=== PATIENT | female | born 1965 | race Hispanic/Latino ===

== ENCOUNTER 2019-10-02 22:12 | Inpatient (IN) | payer SELFPAY ==
[2019-10-02] MEDS ORDERED: MAGNE/ALUM HYDROXD 30 ML UCUP ONE (22:47)
[2019-10-02] MEDS ORDERED: ONDANSETRON 4 MG/2 ML VIAL ONE (22:48)
[2019-10-02] MEDS ORDERED: LIDOCAINE VISCOUS 2% SOLN 15 ML UDC ONE (22:48)
[2019-10-02] MEDS ORDERED: MORPHINE 4 MG/ML SYR ONE (22:48)
[2019-10-02] MEDS ORDERED: FAMOTIDINE 20 MG/2 ML VIAL IV ONE (22:48)
[2019-10-02] MEDS ORDERED: NA CHLORIDE 0.9% 1,000 ML ONE (22:48)
[2019-10-02 23:07] LABS: Absolute Lymphocytes (CBC) 1.7 K/uL (0.7-4.9); Basophils % 0.2 % (0-1.3); Hematocrit 38.8 % (36.0-45.0); Lymphocytes % 11.9 % (15.3-44.8); RBC Red Blood Cell Count 4.23 M/uL (3.86-4.86)
[2019-10-02 23:17] LABS: Albumin 3.9 g/dL (3.4-5.0); Bilirubin Direct 0.1 mg/dL (0-0.2); Bilirubin Total 0.5 mg/dL (0.2-1.0); Potassium 3.4 mmol/L (3.5-5.1); Protein, Total 7.4 g/dL (6.4-8.2)
[2019-10-02] MEDS ORDERED: MORPHINE 4 MG/ML SYR IV PRN (23:28)
[2019-10-02] MEDS ORDERED: PIPER/TAZO/NS 3.375gm 3.375 GM/100 ML BAG ONE (23:32)
[2019-10-03 00:34] LABS: Urine Blood TRACE (NEG); Urine Glucose NEGATIVE (NEG); Urine Protein NEGATIVE (NEG); Urine Specific Gravity 1.015 (1.005-1.030)
[2019-10-03 01:48] VITALS: BMI 27.6
[2019-10-03] MEDS: D5.45NS W/KCL 20MEQ 1,000 ML IV SCH ×4 (02:26→19:45)
[2019-10-03 04:50] LABS: Absolute Lymphocytes (CBC) 0.9 K/uL (0.7-4.9); Basophils % 0.1 % (0-1.3); Lymphocytes % 6.1 % (15.3-44.8); RBC Red Blood Cell Count 4.22 M/uL (3.86-4.86)
[2019-10-03 05:08] LABS: BUN Blood Urea Nitrogen 9 mg/dL (7-18); Bicarbonate 25 mmol/L (21-32); Glucose Level 180 mg/dL (74-106); Potassium 3.8 mmol/L (3.5-5.1); Sodium Level 131 mmol/L (136-145)
[2019-10-03 05:41] LABS: Blood Morphology Comment NOT SEEN (NOT SEEN); Platelet Estimate ADEQ
[2019-10-03] MEDS: ONDANSETRON 4 MG/2 ML VIAL IV PRN (10:43)
[2019-10-03] MEDS ORDERED: Ringers Lactate 1,000 ML IV ONE (11:28)
[2019-10-03] MEDS ORDERED: FENTANYL CITR 100 MCG/2 ML ONE (12:27)
[2019-10-03] MEDS ORDERED: propofoL 200 MG/20 ML VIAL IV ONE (12:28)
[2019-10-03] MEDS ORDERED: MIDAZOLAM HCL 2 MG/2 ML INJ ONE (12:28)
[2019-10-03] MEDS ORDERED: dexAMETHasone 10 MG/ML VIAL ONE (12:28)
[2019-10-03] MEDS ORDERED: LIDOCAINE 2% MPF 5 ML VIAL ONE (12:28)
[2019-10-03] MEDS ORDERED: ROCURONIUM 50 MG/5 ML VIAL IV ONE (12:28)
[2019-10-03] MEDS ORDERED: ONDANSETRON 4 MG/2 ML VIAL ONE (12:57)
--- NOTE | 2019-10-03 13:11 | P.HP ---
Date of Service: 10/03/19 PC: This 53-year-old female presents emergency room with severe right lower quadrant abdominal pain for diagnosis and treatment. HPC: Patient has had the pain for last 24 hr or so. Describes it as severe. PMH: NAD PSHx: Denies any prior surgeries SOC: No known allergies SYS REVIEW: States she is otherwise well O/E awake alert uncomfortable HEENT: Within normal limits Chest: Chest movement equal bilaterally ABD: Tender with guarding and rebound on the right lower quadrant LOCO: Intact DATA: Elevated white cell count, CT scan shows acute appendicitis IMPRESSION: Acute abdomen with appendicitis PLAN: I will take her the operating room for laparoscopic possible open appendectomy. The risks of this procedure have been discussed. The possibility of bleeding, infection, injury to bile ducts blood vessels intestines has been described. The possible need for an open and/or further surgeries and proced ures was discussed. She understands and wants to proceed.
[2019-10-03] MEDS ORDERED: CEFOXITIN/SWI 1gm 1 GM/10 ML SYR ONE (13:12)
[2019-10-03] MEDS ORDERED: NS 0.9% VIAL 20 ML ONE (13:20)
[2019-10-03] MEDS ORDERED: Phenylephrine HCl 10 MG/ML 1 ML VIAL ONE (13:20)
[2019-10-03] MEDS ORDERED: KETOROLAC 30 MG/ML INJ ONE (14:01)
[2019-10-03] MEDS ORDERED: GLYCOPYRROLATE 0.2 MG/ML SYR ONE (14:01)
[2019-10-03] MEDS ORDERED: NEOSTIGMINE 1 MG/ML -5 ML ONE (14:02)
[2019-10-03] MEDS ORDERED: NA CHLORIDE 0.9% 1,000 ML ONE (14:04)
--- NOTE | 2019-10-03 14:27 | P.OP ---
Preoperative diagnosis: Acute abdomen with appendicitis Postoperative diagnosis: The same Primary procedure: Laparoscopic appendectomy Anesthesia: General Estimated blood loss: Less than 10 cc Specimen: 1 appendix and contents Operative Technique: The patient was brought to the operating room, placed supine on the table. After the induction of adequate general endotracheal anesthesia, the area of the abdomen was prepped with a DuraPrep solution, and she was draped in the usual aseptic manner. A subumbilical incision was made. This was brought down through the skin and subcutaneous tissue. The Visiport was cavity and created pneumoperitoneum to approximately 12 mm of mercury. Under direct vision a 5 mm trocar was placed in the lower midline and another 5 mm in the right upper quadrant. The patient was then positioned in Trendelenburg and rolled to the left side. We were able to visualize right lower quadrant. The cecum was identified. There was noted be inflammatory process between the cecum and the right lateral sidewall of the abdomen. We could see that the appendix actually in the retroperitoneum running up just medial to the white line of Toldt. The appendix was mobilized. We were able to free up the base of it. We could see that it was acutely inflamed. The was no evidence of any rupture however was markedly thin walled. The vasculature of the appendix was identified. It was isolated and crushed with a dissect her. The linear Stapler was now placed across this vascular structure and fired. It was divided and provided adequate hemostasis. The instrument was withdrawn. The appendix was then gently dissected from the surrounding structures. The junction of the appendix with the with the cecum was identified. Again mm Stapler room, using a tissue load was placed across the base of the appendix at its junction with the cecum and fired. There was a small area of necrosis which leaked a slight amount while we were doing this. This was easily controlled however with the suction. The specimen was now placed into the Endo-Catch, and brought out through the umbilical trocar site. Attention was turned back towards the right lower quadrant. The area was gently irrigated with the saline solution. The effluent was aspirated until the effluent was clear. 0.25% Marcaine was aerosolize into the right lower quadrant. Attention was turned towards the umbilical trocar. Using the endo- close absorbable sutures were placed to close the defect. The patient was now returned to the neutral position on the OR table. The pneumoperitoneum was collapsed, the umbilical sutures tied, and abner applied to the skin. At the end of the procedure the patient was in stable condition and sent to the recovery room. Needle sponge and instrument count were correct. 1 specimen was sent for histopathology. Sterile dressings had been applied. Complications: None Transferred to: Recovery Room Condition: Good
[2019-10-03] MEDS ORDERED: HYDROCODONE/APAP 7.5/325 MG TAB PO PRN (14:30)
[2019-10-03] MEDS ORDERED: MORPHINE 4 MG/ML SYR IV PRN (14:30)
[2019-10-03] MEDS: CEFOXITIN/SWI 1gm 1 GM/10 ML SYR IVP SCH ×2 (17:39→23:39)
[2019-10-03] MEDS ORDERED: CEFOXITIN 1 GM in NA CHLORIDE 0.9% 100 ML IVPB SCH (18:00)
--- NOTE | 2019-10-03 18:36 | RAD REPORT ---
EXAM DESCRIPTION: CT - Abdomen Pelvis W Contrast - 10/03/2019 2:52 am ADDENDUM #1 ADDENDUM: THIS REPORT CONTAINS FINDINGS THAT MAY BE CRITICAL TO PATIENT'S CARE: The findings were verbally discussed via telephone conference with Dwayne Bales by Dr. Steve jiménez 10/02/2019 11:18 PM CDT. The results were acknowledged and understood. Electronically signed by: Valdo Wilson DO 10/02/2019 11:19 PM CDT End of Addendum EXAM DESCRIPTION: CT Abdomen and Pelvis With Intravenous Contrast CLINICAL HISTORY: The patient is 53 years old and is Female; ABD PAIN TECHNIQUE: Axial computed tomography images of the abdomen and pelvis with intravenous contrast. Sag ittal and coronal reformatted images were created and reviewed. This CT exam was performed using one or more of the following dose reduction techniques: automated exposure control, adjustment of the mA and/or kV according to patient size, and/or use of iterative reconstruction technique. DLP: 1015 mGy*cm COMPARISON: None. FINDINGS: LUNG BASES: Lung bases are clear. Minimal dependent subsegmental atelectasis. HEART: Visualized heart are normal. ABDOMEN: LIVER: Unremarkable. No mass. GALLBLADDER AND BILE DUCTS: Unremarkable. No calcified stones. No ductal dilation. PANCREAS: Unremarkable. No mass. No ductal dilation. SPLEEN: Unremarkable. No splenomegaly. ADRENALS: Unremarkable. No mass. KIDNEYS AND URETERS: Unremarkable. No solid mass. No hydronephrosis. STOMACH AND BOWEL: Trace descending and sigmoid colon diverticulosis. No obstruction. No mucosal thic kening 2.2 cm well-demarcated hyperdensity noted in the gastric pylorus. PELVIS: APPENDIX: Advanced thickening of fluid-filled appendix measuring 1.3 cm. Periappendiceal stranding an d wall thickening. BLADDER: Bladder is decompressed. REPRODUCTIVE: See below. ABDOMEN and PELVIS: INTRAPERITONEAL SPACE: Unremarkable. No free air. No significant fluid collection. BONES/JOINTS: Mild osteopenia. Trace anterolisthesis of L4 and L5. No acute fracture. No dislocation. SOFT TISSUES: Unremarkable. VASCULATURE: Prominent tortuous pelvic vasculature with prominent ovarian veins. No abdominal aortic aneurysm. LYMPH NODES: Unremarkable. No enlarged lymph nodes. IMPRESSION: 1. Acute appendicitis. No perforation or abscess formation. 2. Trace descending and sigmoid colon diverticulosis. No acute diverticulitis. 3. Prominent tortuous pelvic vasculature with prominent ovarian veins. Findings may represent pelvic congestion syndrome. 4. 2.2 cm well-demarcated hyperdensity noted in the gastric pylorus. Electronically signed by: Valdo Wilson DO 10/02/2019 11:14 PM CDT Due to temporary technical issues with the PACS/Fluency reporting system, reports are being signed by the in house radiologist without review as a courtesy to ensure prompt reporting. The interpreting r adiologist is fully responsible for the content of the report.
[2019-10-04] MEDS: ONDANSETRON 4 MG/2 ML VIAL IV PRN
[2019-10-04] MEDS ORDERED: NA CHLORIDE 0.9% 500 ML ONE ×2 (03:33→04:39)
[2019-10-04] MEDS: D5.45NS W/KCL 20MEQ 1,000 ML IV SCH (05:45)
[2019-10-04 09:37] LABS: Absolute Lymphocytes (CBC) 1.4 K/uL (0.7-4.9); Basophils % 0.1 % (0-1.3); Hematocrit 33.4 % (36.0-45.0); Lymphocytes % 7.5 % (15.3-44.8); MPV 9.3 fL (7.6-11.3); RBC Red Blood Cell Count 3.64 M/uL (3.86-4.86)
[2019-10-04 09:38] LABS: Blood Morphology Comment NOT SEEN (NOT SEEN); Platelet Estimate ADEQ; Urine White Blood Cell Casts OK
[2019-10-04 10:40] VITALS: O2SAT 95
[2019-10-04] MEDS ORDERED: NA CHLORIDE 0.9% 500 ML IV ONE (12:20)
[2019-10-04 12:59] VITALS: BP 94/55; TEMP 97.9
--- NOTE | 2019-10-04 14:27 | P.PN ---
Date of Service: 10/04/19 S: Patient feels good today, has been up ambulating, tolerating a diet. Has some shoulder pains after surgery. Says it feels like her arm is broken. O: Vital signs are stable, received 2 boluses last night for pressure support, but H&H is stable. Abdomen is soft A: Surgically stable. Patient was were sure that her shoulder is not broken, that it was fluid from the surgery that was performed yesterday, we did irrigate a lot as we were leaving the operative site. The patient was still in Trendelenburg a most likely pulled above the liver. P: Discharge home, patient was advised on dressing changes, diet, pain medicine, and milk a magnesia. She is to ambulated home, continue with her incentive spirometry. She may shower, change dressings as needed. Should she have any questions or problems she will go to the emergency room or contact me. She is to make an appointment to see me next Wednesday in my office.
--- NOTE | 2019-10-04 14:31 | P.DS ---
Admission Date: 10/02/19 Discharge Date: 10/04/19 Disposition: ROUTINE DISCHARGE Discharge Condition: GOOD Reason for Admission: Acute postoperative abdominal pain Procedures: Laparoscopic appendectomy Brief History of Present Illness: Patient presents emergency room with severe right lower quadrant abdominal pain for diagnosis and treatment Hospital Course: The patient was evaluated emergency room. It was found on CT scanning clinical exam she had acute appendicitis. She was admitted at that time. She is brought to the operating room in the morning which she underwent a laparoscopic appendectomy. She tolerated the procedure well. She was mildly hypotensive despite with no tachycardia at nighttime. She responded well to a 1000 cc bolus of normal saline. Today she is up ambulating, tolerating a diet, and ambulating on her own. She has no postural hypertension. Her hemoglobin hematocrit are stable. She is deemed fit for discharge. Vital Signs/Physical Exam: Temp Pulse Resp BP Pulse Ox 97.9 F 69 15 94/55 L 98 10/04/19 12:00 10/04/19 12:00 10/04/19 12:00 10/04/19 12:00 10/04/19 12:00 Laboratory Data at Discharge: WBC 18.5 K/uL (4.3-10.9) H D 10/04/19 03:51 Hgb 11.3 g/dL (12.0-15.0) L 10/04/19 03:51 Hct 33.4 % (36.0-45.0) L 10/04/19 03:51 Plt Count 255 K/uL (152-406) 10/04/19 03:51 Sodium 131 mmol/L (136-145) L 10/03/19 04:37 Potassium 3.8 mmol/L (3.5-5.1) 10/03/19 04:37 BUN 9 mg/dL (7-18) 10/03/19 04:37 Creatinine 0.63 mg/dL (0.55-1.3) 10/03/19 04:37 Glucose 180 mg/dL (74-106) H 10/03/19 04:37 Total Bilirubin 0.5 mg/dL (0.2-1.0) 10/02/19 22:38 AST 15 U/L (15-37) 10/02/19 22:38 ALT 29 U/L (12-78) 10/02/19 22:38 Alkaline Phosphatase 55 U/L (45-117) 10/02/19 22:38 Lipase 177 U/L (73-393) 10/02/19 22:38 Home Medications: Levothyroxine Sodium [Synthroid] 50 mcg PO DAILY 10/03/19
--- NOTE | 2019-10-09 12:46 | ER ---
Nurse's Notes [facility] Name: Charmaine Guillory Age: 53 yrs Sex: Female : 1965 Arrival Date: 10/02/2019 Time: 22:13 Bed 5 Private MD: Diagnosis: Acute appendicitis Presentation: 10/01 22:20 Chief complaint: Family member states, She says that her stomach is hurting her really sg badly today, in the top side of stomach. Coronavirus screen: Proceed with normal triage. Ebola Screen: Patient negative for fever greater than or equal to 101.5 degrees Fahrenheit, and additional compatible Ebola Virus Disease symptoms Patient denies exposure to infectious person. Patient denies travel to an Ebola-affected area in the 21 days before illness onset. No symptoms or risks identified at this time. Initial Sepsis Screen: Does the patient meet any 2 criteria? No. Patient's initial sepsis screen is negative. Does the patient have a suspected source of infection? No. Patient's initial sepsis screen is negative. Risk Assessment: Do you want to hurt yourself or someone else? Patient reports no desire to harm self or others. Onset of symptoms was October 02, 2019. 22:20 Acuity: VALDEZ 3 sg 22:20 Method Of Arrival: Wheelchair sg Historical: - Allergies: 22:32 No Known Allergies; ea - Home Meds: 22:32 levothyroxine 50 mcg tab 1 tab once daily [Active]; ea - PMHx: 22:32 Hypothyroidism; ea - PSHx: 22:32 Hernia repair; ; ea - Immunization history:: Adult Immunizations up to date. - Social history:: Patient/guardian denies using alcohol, street drugs, The patient lives with family, Smoking status: Patient denies any tobacco usage or history of. - Family history:: not pertinent. Screenin:31 Abuse screen: Denies threats or abuse. Nutritional screening: No deficits noted. ea Tuberculosis screening: No symptoms or risk factors identified. Fall Risk None identified. Assessment: 22:32 General: Appears uncomfortable, Behavior is appropriate for age. Pain: Complains of ea pain in epigastric area. Neuro: Level of Consciousness is awake, alert, obeys commands, Oriented to person, place, time, situation. Respiratory: Airway is patent Respiratory effort is even, unlabored, Respiratory pattern is regular, symmetrical. GI: Bowel sounds present X 4 quads. Abd is soft X 4 quads. Derm: Skin is pink, warm \T\ dry. 22:44 Reassessment: pt family/friend on the phone inquiring pt information, access code sg provided and verified. Informed family that they will get a call back when results are back as the patient has only been here for approx 30 mins, pt family/friend stated understanding. 23:38 Reassessment: Patient and/or family updated on plan of care and expected duration. Pain ea level reassessed. Patient is alert, oriented x 3, equal unlabored respirations, skin warm/dry/pink. 10/02 00:09 Reassessment: Patient and/or family updated on plan of care and expected duration. Pain ea level reassessed. Patient is alert, oriented x 3, equal unlabored respirations, skin warm/dry/pink. 01:12 Reassessment: Patient and/or family updated on plan of care and expected duration. Pain ea level reassessed. Patient is alert, oriented x 3, equal unlabored respirations, skin warm/dry/pink. Vital Signs: 10/01 22:30 BP 135 / 80; Pulse 60; Resp 19; Temp 97.2; Pulse Ox 97% on R/A; Weight 62 kg; Height 5 rv ft. (152.40 cm); Pain 9/10; 23:38 BP 126 / 63; Pulse 60; Resp 18; Pulse Ox 100% ; ea 10/02 01:13 BP 104 / 68; Pulse 62; Resp 18; Pulse Ox 95% ; ea 10/01 22:30 Body Mass Index 26.69 (62.00 kg, 152.40 cm) rv ED Course: 10/01 22:13 Patient arrived in ED. ds1 22:19 Dwayne Bales MD is Attending Physician. ma2 22:21 Triage completed. sg 22:21 Arm band placed on. sg 22:30 Eligio Maharaj RN is Primary Nurse. rv 22:31 Patient has correct armband on for positive identification. Bed in low position. Call ea light in reach. Side rails up X 1. 22:38 Inserted saline lock: 20 gauge in right antecubital area, using aseptic technique. ea Blood collected. 23:03 CT Abd/Pelvis - IV Contrast Only In Process Unspecified. EDMS 23:24 Amadeo Dodson MD is Hospitalizing Provider. ma2 23:37 No provider procedures requiring assistance completed. Patient admitted, IV remains in ea place. Administered Medications: 23:00 Drug: Zofran (Ondansetron) 4 mg Route: IVP; Site: right antecubital; ea 23:53 Follow up: Response: No adverse reaction rv 23:02 Drug: Pepcid 20 mg Route: IVP; Site: right antecubital; ea 23:53 Follow up: Response: No adverse reaction rv 23:02 Drug: GI Cocktail without - (Maalox Suspension 30 ml, Lidocaine Liquid 2 % 15 ea ml) Route: PO; 23:53 Follow up: Response: No adverse reaction rv 23:02 Drug: NS 0.9% 1000 ml Route: IV; Rate: 1 bolus; Site: right antecubital; ea 23:54 Follow up: IV Status: Completed infusion; IV Intake: 1000ml rv 23:03 Drug: morphine 4 mg Route: IVP; Site: right antecubital; ea 23:53 Follow up: Response: No adverse reaction; Marked relief of symptoms; Pain is decreased; rv RASS: Alert and Calm (0) 23:43 Drug: Zosyn 3.375 grams Route: IVPB; Infused Over: 60 mins; Site: right antecubital; rv 10/02 00:10 Follow up: Response: No adverse reaction; IV Status: Completed infusion; IV Intake: 50mlea 00:19 Drug: morphine 4 mg {Note: RASS 1.} Route: IVP; Site: right antecubital; ea 00:26 Follow up: Response: No adverse reaction; Pain is decreased; RASS: Alert and Calm (0) ea 00:25 Drug: Zofran (Ondansetron) 4 mg Route: IVP; Site: right antecubital; ea 01:11 Follow up: Response: No adverse reaction rv Intake: 10/01 23:54 IV: 1000ml; Total: 1000ml. rv 10/02 00:10 IV: 50ml; Total: 1050ml. ea Outcome: 10/01 23:25 Decision to Hospitalize by Provider. ma2 23:38 Instructed on the need for admit. ea 10/02 01:12 Admitted to Med/surg accompanied by tech, via wheelchair, with chart, Report called to maribel Mcdonald RN Condition: stable 01:44 Patient left the ED. maribel Signatures: Dispatcher [employer] Marin James RN RN Renata Palmer ds1 Claudine Ordoñez RN RN ea Alzahri, Mohammad, MD MD ma2 Eligio Maharaj RN RN rv Corrections: (The following items were deleted from the chart) 00:19 00:19 morphine 4 mg IVP in right antecubital maribel lópez
--- NOTE | 2019-10-09 12:47 | EDPHYS ---
Physician Documentation [facility] Name: Charmaine Guillory Age: 53 yrs Sex: Female : 1965 Arrival Date: 10/02/2019 Time: 22:13 Bed 5 Private MD: ED Physician Dwayne Bales HPI: 10/01 23:22 This 53 yrs old Female presents to ER via Wheelchair with complaints of Abdominal Pain. ma2 23:22 The patient presents with abdominal pain. Onset: The symptoms/episode began/occurred ma2 suddenly, 1 day(s) ago. Associated signs and symptoms: Pertinent negatives: nausea and vomiting, anorexia, blood in stools, chest pain, diarrhea, fever, shortness of breath, vaginal discharge, vomiting blood. Severity of pain: At its worst the pain was moderate in the emergency department the pain is unchanged. The patient has not experienced similar symptoms in the past. Historical: - Allergies: 22:32 No Known Allergies; ea - Home Meds: 22:32 levothyroxine 50 mcg tab 1 tab once daily [Active]; ea - PMHx: 22:32 Hypothyroidism; ea - PSHx: 22:32 Hernia repair; ; ea - Immunization history:: Adult Immunizations up to date. - Social history:: Patient/guardian denies using alcohol, street drugs, The patient lives with family, Smoking status: Patient denies any tobacco usage or history of. - Family history:: not pertinent. ROS: 23:22 Constitutional: Negative for fever, chills, and weight loss. ma2 23:22 All other systems are negative. Exam: 23:22 Constitutional: This is a well developed, well nourished patient who is awake, alert, ma2 and in no acute distress. Chest/axilla: Normal chest wall appearance and motion. Nontender with no deformity. No lesions are appreciated. Cardiovascular: Regular rate and rhythm with a normal S1 and S2. No gallops, murmurs, or rubs. Normal PMI, no JVD. No pulse deficits. Respiratory: Lungs have equal breath sounds bilaterally, clear to auscultation and percussion. No rales, rhonchi or wheezes noted. No increased work of breathing, no retractions or nasal flaring. Abdomen/GI: RLQ abd pain, no guarding no rebound, Soft, non-tender, with normal bowel sounds. No distension or tympany. No guarding or rebound. MS/ Extremity: Pulses equal, no cyanosis. Neurovascular intact. Full, normal range of motion. Neuro: Awake and alert, GCS 15, oriented to person, place, time, and situation. Cranial nerves II-XII grossly intact. Motor strength 5/5 in all extremities. Sensory grossly intact. Cerebellar exam normal. Normal gait. Vital Signs: 22:30 BP 135 / 80; Pulse 60; Resp 19; Temp 97.2; Pulse Ox 97% on R/A; Weight 62 kg; Height 5 rv ft. (152.40 cm); Pain 9/10; 23:38 BP 126 / 63; Pulse 60; Resp 18; Pulse Ox 100% ; ea 10/02 01:13 BP 104 / 68; Pulse 62; Resp 18; Pulse Ox 95% ; ea 10/01 22:30 Body Mass Index 26.69 (62.00 kg, 152.40 cm) rv MDM: 10/01 22:19 Patient medically screened. [facility] 23:22 Differential diagnosis: appendicitis, cholecystitis, Cholelithiasis, diverticulitis, ma2 gastroesophageal reflux disease. Data reviewed: vital signs, nurses notes. Counseling: I had a detailed discussion with the patient and/or guardian regarding: the historical points, exam findings, and any diagnostic results supporting the discharge/admit diagnosis, the presence of at least one elevated blood pressure reading (>120/80) during this emergency department visit, the need for further work-up and treatment in the hospital. Response to treatment: the patient's symptoms have markedly improved after treatment. ED course: discussed with dr. knowles . 10/01 22:28 Order name: Basic Metabolic Panel; Complete Time: 23:19 [facility] 10/01 22:28 Order name: CBC with Diff; Complete Time: 23:19 [facility] 10/01 22:28 Order name: Hepatic Function; Complete Time: 23:19 [facility] 10/01 22:28 Order name: Lipase; Complete Time: 23:19 [facility] 10/01 23:04 Order name: CREATININE WHOLE BLOOD; Complete Time: 23:19 [facility] 10/01 23:32 Order name: Basic Metabolic Panel [facility] 10/01 22:28 Order name: CT Abd/Pelvis - IV Contrast Only [facility] 10/01 23:34 Order name: Basic Metabolic Panel [facility] 10/01 23:34 Order name: CBC with Automated Diff [facility] 10/01 23:34 Order name: CBC with Automated Diff [facility] 10/01 23:43 Order name: Urine Dipstick--Ancillary (enter results) nm5 10/02 00:34 Order name: Urine Dipstick-Ancillary [facility] 10/01 22:28 Order name: Urine Dipstick-Ancillary (obtain specimen); Complete Time: 23:52 [facility] 10/01 22:28 Order name: IV Saline Lock; Complete Time: 22:44 [facility] 10/01 22:28 Order name: Labs collected and sent; Complete Time: 22:44 [facility] 10/01 23:21 Order name: NPO; Complete Time: 23:26 [facility] 10/01 23:34 Order name: CONS Pharmacy Consult [facility] 10/01 23:34 Order name: NPO [facility] Administered Medications: 23:00 Drug: Zofran (Ondansetron) 4 mg Route: IVP; Site: right antecubital; ea 23:53 Follow up: Response: No adverse reaction rv 23:02 Drug: Pepcid 20 mg Route: IVP; Site: right antecubital; ea 23:53 Follow up: Response: No adverse reaction rv 23:02 Drug: GI Cocktail without - (Maalox Suspension 30 ml, Lidocaine Liquid 2 % 15 ea ml) Route: PO; 23:53 Follow up: Response: No adverse reaction rv 23:02 Drug: NS 0.9% 1000 ml Route: IV; Rate: 1 bolus; Site: right antecubital; ea 23:54 Follow up: IV Status: Completed infusion; IV Intake: 1000ml rv 23:03 Drug: morphine 4 mg Route: IVP; Site: right antecubital; ea 23:53 Follow up: Response: No adverse reaction; Marked relief of symptoms; Pain is decreased; rv RASS: Alert and Calm (0) 23:43 Drug: Zosyn 3.375 grams Route: IVPB; Infused Over: 60 mins; Site: right antecubital; rv 10/02 00:10 Follow up: Response: No adverse reaction; IV Status: Completed infusion; IV Intake: 50mlea 00:19 Drug: morphine 4 mg {Note: RASS 1.} Route: IVP; Site: right antecubital; ea 00:26 Follow up: Response: No adverse reaction; Pain is decreased; RASS: Alert and Calm (0) ea 00:25 Drug: Zofran (Ondansetron) 4 mg Route: IVP; Site: right antecubital; ea 01:11 Follow up: Response: No adverse reaction rv Disposition: 10/02/19 23:25 Hospitalization ordered by Amadeo Knowles for Inpatient Admission. Preliminary diagnosis is Acute appendicitis. - Bed requested for Telemetry/MedSurg (Inpatient). - Status is Inpatient Admission. ea - Condition is Stable. - Problem is new. - Symptoms are unchanged. Signatures: Dispatcher [employer] EDMS Sena Cunha RN RN Claudine Naik RN RN ea Alzahri, Mohammad, MD MD [facility] Eligio Maharaj RN RN rv Corrections: (The following items were deleted from the chart) 00:54 10/01 23:25 Hospitalization Ordered by Amadeo Knowles MD for Inpatient Admission. Preliminary diagnosis is Acute appendicitis. Bed requested for Telemetry/MedSurg (Inpatient). Status is Inpatient Admission. Condition is Stable. Problem is new. Symptoms are unchanged. [facility] 10/02 01:44 00:54 10/02/2019 23:25 Hospitalization Ordered by Amadeo Knowles MD for Inpatient ea Admission. Preliminary diagnosis is Acute appendicitis. Bed requested for Telemetry/MedSurg (Inpatient). Status is Inpatient Admission. Condition is Stable. Problem is new. Symptoms are unchanged.
== END 2019-10-04 16:28 | disposition home or self-care (01) | DRG 343 ==
LOC: ER 22:12 → ERHOLD 23:40 → 2ND 10-03 01:31
PROVIDERS: ADMIT Surgery; ATTEND Surgery
PROC: 0DTJ4ZZ Resection of Appendix, Percutaneous Endoscopic Approach (ICD-10-PCS; principal; 2019-10-03 12:30)
PROC: 30233N1 Transfusion of Nonautologous Red Blood Cells into Peripheral Vein, Percutaneous Approach (ICD-10-PCS; 2019-10-04)
DX: K35.80 Unspecified acute appendicitis (principal); E03.9 Hypothyroidism, unspecified; Z79.890 Hormone replacement therapy
CPT/HCPCS: 36415; 74177; 80048; 80076; 81003; 82565; 83690; 84703; 85025; 86850; 86900; 86901; 88304; 96361; 96365; 96375; 99285; J1100; J2250; J2370; J2405; J2543; J2704; J2710; J3010; J7030; J7040; J7120; Q9967